=== PATIENT | male | born 2000 | race Caucasian/White ===

== ENCOUNTER 2021-07-10 15:51 | Outpatient (CLI) | payer OTHER ==
[2021-07-10] MEDS ORDERED: iohexoL-300 100 ML VIAL ONE (17:48)
[2021-07-10] MEDS ORDERED: iohexoL-300 100 ML VIAL IVP ONE (18:46)
--- NOTE | 2021-07-11 17:00 | CT Report ---
PROCEDURE: SOFT TISSUE NECK W INDICATIONS: LEFT ANTERIOR LATERAL NECK MASS CONTRAST: IV CONTRAST: Optiray 320 ml: 100 PO CONTRAST: *NO PO CONTRAST TECHNIQUE: After the administration of intravenous contrast, 3.0 mm axial sections acquired from the sella to th e aortic arch. Additional oblique axial 3.0 mm sections acquired through the pharynx. 3 mm thick co ashkan reformats were generated. For radiation dose reduction, the following was used: automated exp osure control, adjustment of mA and/or kV according to patient size. COMPARISON: None. FINDINGS: Image quality: Excellent. Lymph nodes: There is extensive left sided adenopathy. A confluent mass is identified in the left lev el 2A measuring 4.9 x 4.5 x 5.4 cm. Adenopathy extends into the multiple levels of the largest suprac lavicular node is present on series 3 image 82 and measures 1.9 cm in short axis. Lower neck as well as supraclavicular region. There are numerous right-sided lymph nodes although none considered enlarg ed by pathologic size criteria. Vessels: Visualized vasculature appears patent. Neck spaces: There is a slight asymmetric prominence to the left tonsillar region.. The vocal cords, false vocal cords, pyriform sinuses, epiglottis, vallecula, and tongue base all appear normal. Extr amucosal spaces appear unremarkable. Glands: The parotid and submandibular glands appear normal. The thyroid is normal in size and there are no incidental findings. Miscellaneous: Visualized brain and orbits appear normal. Lung apices appear clear. Superficial so ft tissues appear normal. Bones: No suspicious bony lesions. Visualized sinuses and mastoids appear unremarkable. IMPRESSION: 1. Extensive left-sided adenopathy as described above highly concerning for malignant process such as lymphoma or metastatic disease. 2. Asymmetric prominence within the left peritonsillar region. Mucosal mass within this region cannot be definitively excluded. Recommend direct visualization or PET scan for further evaluation. CLINICAL RECOMMENDATION STATEMENTS: In patients <35 years with an ITN detected on CT, MRI, or extrathyroidal ultrasound, the Committee re commends further evaluation with dedicated thyroid ultrasound if the nodule is "e1 cm and has no susp icious imaging features, and if the patient has normal life expectancy. In patients "e35 years with an ITN detected on CT, MRI, or extrathyroidal ultrasound, the Committee r ecommends further evaluation with dedicated thyroid ultrasound if the nodule is "e1.5 cm and has no s uspicious imaging features, and if the patient has normal life expectancy. (ACR, 2014) Reviewed by: Aleida Marques MD on 07/11/2021 4:59 PM PST Approved by: Aleida Marques MD on 07/11/2021 4:59 PM PST Station ID: [id number]
== END 2021-07-10 15:52 | disposition home or self-care (01) ==
LOC: DI 15:51
PROVIDERS: ATTEND Physician Assistant
DX: R59.0 Localized enlarged lymph nodes (principal); R93.89 Abnormal findings on diagnostic imaging of other specified body structures
CPT/HCPCS: 70491; Q9967

== ENCOUNTER 2021-07-19 10:56 | Day surgery (SDC) | payer OTHER ==
[2021-07-19] MEDS ORDERED: LACTATED RINGERS 1,000 ML IV ONE ×2 (11:00→13:33)
--- NOTE | 2021-07-19 11:36 | ANESTHESIA ---
Pre-Anesthesia VS, & Labs - Diagnosis left neck lymphadanopathy - Procedure removal of left neck lymph node Vital Signs: Temp Pulse Resp BP Pulse Ox 36.2 C L 102 H 18 142/68 H 100 07/19/21 11:00 07/19/21 11:00 07/19/21 11:00 07/19/21 11:00 07/19/21 11:00 Height: 5 ft 7 in Weight (kg): 130 kg Body Mass Index: 44.9 BMI Classification: Morbidly Obese - NPO >8 hours Home Medications and Allergies Allergies/Adverse Reactions: Allergies Allergy/AdvReac Type Severity Reaction Status Date / Time No Known Drug Allergies Allergy Verified 07/19/21 11:15 Anes History & Medical History - Anesthetic History Family history of Anesthesia Complications: Denies Family history of Malignant Hyperthermia: Denies - Medical History Cardiovascular: reports: None Pulmonary: reports: Other (snores) Gastrointestinal: reports: None Urinary: reports: None Neuro: reports: None Musculoskeletal: reports: None Endocrine/Autoimmune: reports: None Blood Disorders: reports: None Skin: reports: None Smoking Status: Never smoker Psychosocial: reports: No issues indicated History of Cancer?: No Exam General: Alert, Oriented x3, Cooperative, No acute distress Dental: WNL Mouth Openin Fingerbreadth Neck Mobility: Normal (large mass left neck) Mallampati classification: III Thyromental Distance: 4-6 cm Respiratory: Lungs clear, Normal breath sounds, No respiratory distress, No accessory muscle use Cardiovascular: Regular rate, Normal S1, Normal S2, No murmurs Mental/Cognitive Status: Alert/Oriented X3, Normal for patient Plan Anesthesia Type: General Consent for Procedure(s) Verified and Reviewed: Yes Code Status: Attempt Resuscitation ASA classification: 3-Severe systemic disease Is this case an emergency?: No
[2021-07-19] MEDS ORDERED: ONDANSETRON 4 MG/2 ML VIAL IVP PRN (11:40)
[2021-07-19] MEDS ORDERED: ATROPINE ABBOJECT 1 MG/10 ML SYRINGE IVP PRN (11:40)
[2021-07-19] MEDS ORDERED: NALOXONE 0.4 MG/ML VIAL IVP PRN (11:40)
[2021-07-19] MEDS ORDERED: fentaNYL 100 MCG/2 ML VIAL IVP PRN (11:40)
[2021-07-19] MEDS ORDERED: HYDROmorphone 0.5 MG/0.5 ML SYRINGE IVP PRN (11:40)
[2021-07-19] MEDS ORDERED: MORPHINE 2 MG/ML CARPUJECT IVP PRN (11:40)
[2021-07-19] MEDS ORDERED: ROCURONIUM 50 MG/5 ML VIAL ONE (11:51)
[2021-07-19] MEDS ORDERED: PROPOFOL 200 MG/20 ML VIAL IVP ONE (11:51)
[2021-07-19] MEDS ORDERED: MIDAZOLAM 2 MG/2 ML VIAL ONE (11:51)
[2021-07-19] MEDS ORDERED: LIDOCAINE-MPF 2% 5 ML VIAL ONE (11:51)
[2021-07-19] MEDS ORDERED: LIDOCAINE 2%-EPI 1:100000 20 ML MDV ONE (11:59)
[2021-07-19] MEDS ORDERED: BUPIVACAINE 0.5% PF 10 ML VIAL ONE (11:59)
[2021-07-19] MEDS ORDERED: LACTATED RINGERS 1,000 ML IV SCH (12:00)
[2021-07-19] MEDS ORDERED: LIDOCAINE 2%-EPI 1:100000 20 ML MDV SUBQ ONE ×2 (12:10)
[2021-07-19] MEDS ORDERED: BUPIVACAINE 0.5%-EPI 1:200000 PF 30 ML VIAL SUBQ ONE ×2 (12:10)
[2021-07-19] MEDS ORDERED: ONDANSETRON 4 MG/2 ML VIAL ONE (12:47)
[2021-07-19] MEDS ORDERED: DEXAMETHASONE 10 MG/ML VIAL ONE (12:47)
[2021-07-19] MEDS ORDERED: SUGAMMADEX 200 MG/2 ML VIAL IVP ONE (13:21)
[2021-07-19] MEDS ORDERED: HYDROcod/ACETAM 5/325 MG TABLET PO PRN (13:35)
--- NOTE | 2021-07-19 13:42 | OPERATIVE REPORT ---
Operative Report - General Procedure Date: 07/19/21 Planned Procedure: left neck lymph node biopsy Pre-Op Diagnosis: left neck lymphadenopathy Procedure Performed: excision deep left neck cervicle lymph node Post Op Diagnosis: left neck lymphadenopathy - Procedure Note Primary Surgeon: johnie stephens Anesthesia Technique: General ET tube, Local Pathology: lymph node Estimated Blood Loss (mL): 0 Drain/Tube Type: Other (none) Indications: lymphadenopathy Findings: bailey Complications: none - Other Other Information/Narrative: The patient was properly identified brought to the operating room and placed in supine position. General endotracheal anesthesia was induced. He was repositioned in a modified Fowlers position. He was prepped and draped in a sterile fashion. Antibiotics were not given. Local anesthetic was given. A 3 and half centimeter incision was made directly over the lower palpable lymph node. This was a low posterior cervical area. Dissection proceeded with cutting current cautery. Platysma was divided. The external jugular vein lay medial. Sternocleido mastoid musculature was carefully mobilized. A lymph node deep to the sternocleidomastoid was identified and carefully mobilized. The lymph node was approximately 2 x 3 cm. It was very soft and very adherent deep. Two thirds of the lymph node was carefully mobilized largely with blunt dissection followed by careful use of cutting current cautery. Two thirds of the lymph node was removed. Hemostasis was assured. Platysmas was closed with buried erupted 3-0 Vicryl suture. Buried interrupted subdermal 3-0 Vicryl sutures were was then placed. Skin was closed with a running 4-0 Monocryl subcuticular suture. Dressing was applied. Tolerated the procedure very well.
--- NOTE | 2021-07-19 14:32 | ANESTHESIA POST OP EVALUATION ---
Anesthesia Post Eval - Post Anesthesia Eval Vitals: Last Vital Signs Temp 36.2 C L 07/19/21 13:55 Pulse 103 H 07/19/21 13:55 Resp 19 07/19/21 13:55 BP 143/60 H 07/19/21 13:55 Pulse Ox 96 07/19/21 13:55 CV Function Including HR & BP: Stable Pain Control: Satisfactory Nausea & Vomiting: Negative Mental Status: Baseline Respiratory Status: Airway Patent Hydration Status: Satisfactory Anesthesia Complications: None
[2021-07-19 14:49] VITALS: BP 128/60
== END 2021-07-19 10:57 | disposition home or self-care (01) ==
LOC: SDS 10:56
PROVIDERS: ATTEND Surgery
PROC: 07B20ZX Excision of Left Neck Lymphatic, Open Approach, Diagnostic (ICD-10-PCS; principal; 2021-07-19 12:00)
DX: R59.0 Localized enlarged lymph nodes (principal); E66.01 Morbid (severe) obesity due to excess calories; Z68.41 Body mass index [BMI] 40.0-44.9, adult
CPT/HCPCS: 38510; J7120

== ENCOUNTER 2021-08-22 14:46 | Outpatient (CLI) | payer OTHER ==
[2021-08-22] MEDS ORDERED: IOPAMIDOL-300 50 ML VIAL ONE (15:07)
[2021-08-22] MEDS ORDERED: IOVERSOL 320 100 ML VIAL IVP ONE ×2 (15:08→19:02)
[2021-08-22] MEDS ORDERED: IOPAMIDOL-300 50 ML VIAL PO ONE (19:02)
--- NOTE | 2021-08-23 08:56 | CT Report ---
PROCEDURE: CHEST W INDICATIONS: LYMPHOMA CONTRAST: IV CONTRAST: Optiray 320 ml: 100 PO CONTRAST: Isovue 300 ml50 TECHNIQUE: After the administration of intravenous contrast, 1 mm axial images were acquired from the pulmonary apices through the posterior costophrenic angles. Axial 5 mm soft tissue kernel reconstructions were performed as well as 8 mm axial MIP and coronal and sagittal 5 mm reformations. For radiation dose reduction, the following was used: automated exposure control, adjustment of mA and/or kV according to patient size. COMPARISON: None. FINDINGS: CT CHEST: Thyroid: Homogeneous. Vasculature: The thoracic aorta and arch vasculature have a normal contrasted appearance and are norm al size and contour. No evidence for dissection. Heart: No cardiomegaly or significant pericardial effusion. Mediastinum: No pathologic lymph node enlargement by size criteria. Lung/pleura: No pleural effusion, consolidation, or pneumothorax. Tracheobronchial tree: Patent. Bones: No significant abnormality. Chest wall: The chest wall and axilla are within normal limits. IMPRESSION: 1.No significant abnormality. Reviewed by: Real Cleary MD on 08/23/2021 8:55 AM [facility] Approved by: Real Cleary MD on 08/23/2021 8:55 AM [facility] Station ID: [id number]
--- NOTE | 2021-08-23 08:58 | CT Report ---
PROCEDURE: Abdomen/Pelvis W INDICATIONS: LYMPHOMA CONTRAST: IV CONTRAST: Optiray 320 ml: 100 PO CONTRAST: Isovue 300 ml50 TECHNIQUE: After the administration of oral and intravenous contrast, 5 mm thick sections acquired from the diap hragms to the symphysis. 5 mm thick coronal and sagittal reformats were acquired. For radiation dos e reduction, the following was used: automated exposure control, adjustment of mA and/or kV accordin g to patient size. COMPARISON: None. FINDINGS: Gallbladder: The gallbladder is distended with a smooth thin wall. Biliary tree: No intra-or extrahepatic biliary ductal dilatation. Liver: The liver demonstrates normal enhancement, size, and contour. Spleen: Normal enhancement, size and morphology is seen. Pancreas: No contour deforming mass or inflammatory change. Adrenals: Normal size without masses. Kidneys/ureters: Normal size and morphology. No solid masses or hydronephrosis. Vasculature: No evidence of aneurysm or other significant vascular pathology. Lymphatic system: No pathologic enlargement by size criteria. GI/mesentery: No evidence of intestinal obstruction. Normal appearance of the appendix. Peritoneum/Retroperitoneum: No free intraperitoneal gas or large collection. Urinary bladder: The urinary bladder is distended with a smooth thin wall. Pelvic organs: No significant abnormality. Bones/soft tissues: No significant abnormality. IMPRESSION: 1.No significant abnormality. Reviewed by: Real Cleary MD on 08/23/2021 8:57 AM [facility] Approved by: Real Cleary MD on 08/23/2021 8:57 AM [facility] Station ID: [id number]
--- NOTE | 2021-08-23 12:41 | CT Report ---
PROCEDURE: SOFT TISSUE NECK W INDICATIONS: LYMPHOMA CONTRAST: IV CONTRAST: Optiray 320 ml: 100 PO CONTRAST: Isovue 300 ml50 TECHNIQUE: After the administration of intravenous contrast, 3.0 mm axial sections acquired from the sella to th e aortic arch. Additional oblique axial 3.0 mm sections acquired through the pharynx. 3 mm thick co ashkan reformats were generated. For radiation dose reduction, the following was used: automated exp osure control, adjustment of mA and/or kV according to patient size. COMPARISON: 07/10/2021. Correlation is also made with the accompanying chest CT, 08/22/2021. FINDINGS: Image quality: Excellent. Lymph nodes: Abnormally enlarged left-sided lymph nodes are seen. The largest is seen at level 2A an d measures 4.8 x 4.4 cm in greatest axial dimension. This is not significantly changed in size when c ompared to the prior study and measured in a similar fashion. Numerous other left-sided lymph nodes a re seen, which overall appear slightly more prominent on the current study than on the prior. However , some individual lymph nodes appear larger in some individual lymph nodes appear smaller. Vessels: Visualized vasculature appears patent. Neck spaces: The oropharynx, nasopharynx, and pharynx demonstrate no mucosal lesions. The vocal cor ds, false vocal cords, pyriform sinuses, epiglottis, vallecula, and tongue base all appear normal. E xtramucosal spaces appear unremarkable. Glands: The parotid and submandibular glands appear normal. The thyroid is normal in size and there are no incidental findings. Miscellaneous: Visualized brain and orbits appear normal. Lung apices appear clear. Superficial so ft tissues appear normal. Bones: No suspicious bony lesions. Visualized sinuses and mastoids appear unremarkable. IMPRESSION: Abnormally enlarged left-sided cervical lymph nodes are again seen. Although not significantly differ ent from the prior CT, the lymph nodes overall appear slightly larger on the current study than on e prior. Please consider short-term follow-up. Reviewed by: Huber Lopez MD on 08/23/2021 11:40 AM [facility] Approved by: Huber Lopez MD on 08/23/2021 11:40 AM [facility] Station ID: [id number]
== END 2021-08-22 14:47 | disposition home or self-care (01) ==
LOC: DI 14:46
PROVIDERS: ATTEND Internal Medicine
DX: C81.08 Nodular lymphocyte predominant Hodgkin lymphoma, lymph nodes of multiple sites (principal); R59.0 Localized enlarged lymph nodes

== ENCOUNTER 2021-09-24 06:26 | Day surgery (SDC) | payer OTHER ==
[2021-09-24] MEDS ORDERED: LACTATED RINGERS 1,000 ML IV ONE (06:33)
[2021-09-24] MEDS ORDERED: LIDOCAINE 2%-EPI 1:100000 20 ML MDV ONE (07:18)
[2021-09-24] MEDS ORDERED: BUPIVACAINE 0.25% PF 10 ML VIAL ONE (07:18)
[2021-09-24] MEDS ORDERED: MIDAZOLAM 2 MG/2 ML VIAL ONE (07:33)
[2021-09-24] MEDS ORDERED: ONDANSETRON 4 MG/2 ML VIAL ONE (07:34)
[2021-09-24] MEDS ORDERED: PROPOFOL 200 MG/20 ML VIAL IVP ONE ×2 (07:34→08:48)
[2021-09-24] MEDS ORDERED: LIDOCAINE-MPF 2% 5 ML VIAL ONE (07:34)
[2021-09-24] MEDS ORDERED: ROCURONIUM 50 MG/5 ML VIAL ONE (07:34)
[2021-09-24] MEDS ORDERED: fentaNYL 100 MCG/2 ML VIAL ONE (07:34)
--- NOTE | 2021-09-24 07:35 | ANESTHESIA ---
Pre-Anesthesia VS, & Labs - Diagnosis hodgkin lymphoma - Procedure port a cath placement Vital Signs: Temp Pulse Resp BP Pulse Ox 36.6 C 99 16 136/72 H 96 09/24/21 06:34 09/24/21 06:34 09/24/21 06:34 09/24/21 06:34 09/24/21 06:34 Height: 5 ft 6 in Weight (kg): 126.6 kg Body Mass Index: 45.0 BMI Classification: Morbidly Obese - NPO >8 hours - Lab Results Lab results reviewed: Yes Home Medications and Allergies diphenhydrAMINE HCL [Sleep Aid] 50 mg PO DAILY PM 08/14/21 Allergies/Adverse Reactions: Allergies Allergy/AdvReac Type Severity Reaction Status Date / Time No Known Drug Allergies Allergy Verified 07/19/21 11:15 Anes History & Medical History - Anesthetic History Anesthesia Complications: reports: No previous complications Family history of Anesthesia Complications: Denies Family history of Malignant Hyperthermia: Denies - Medical History Cardiovascular: reports: None Pulmonary: reports: Other Gastrointestinal: reports: None Urinary: reports: None Neuro: reports: None Musculoskeletal: reports: None Endocrine/Autoimmune: reports: None, Other (lymphoma) Blood Disorders: reports: None Skin: reports: None Smoking Status: Never smoker History of Cancer?: Yes (hodgkins lymphoma) - Surgical History Other Past Surgical History: lymph node biopsy Exam General: Alert, Oriented x3, Cooperative Dental: WNL Mouth Openin Fingerbreadth Neck Mobility: Normal Mallampati classification: II Thyromental Distance: 4-6 cm Respiratory: Lungs clear, Normal breath sounds, No respiratory distress Cardiovascular: Regular rate Neurological: Normal speech Mental/Cognitive Status: Alert/Oriented X3, Normal for patient Cognitive Status: Within normal limits Plan Anesthesia Type: General Consent for Procedure(s) Verified and Reviewed: Yes Code Status: Attempt Resuscitation ASA classification: 3-Severe systemic disease Is this case an emergency?: No
[2021-09-24] MEDS ORDERED: ONDANSETRON 4 MG/2 ML VIAL IVP PRN (07:40)
[2021-09-24] MEDS ORDERED: NALOXONE 0.4 MG/ML VIAL IVP PRN (07:40)
[2021-09-24] MEDS ORDERED: HYDROmorphone 0.5 MG/0.5 ML SYRINGE IVP PRN (07:40)
[2021-09-24] MEDS ORDERED: MORPHINE 2 MG/ML CARPUJECT IVP PRN (07:40)
[2021-09-24] MEDS ORDERED: METOCLOPRAMIDE 10 MG/2 ML VIAL IVP PRN (07:40)
[2021-09-24] MEDS ORDERED: fentaNYL 100 MCG/2 ML VIAL IVP PRN (07:40)
[2021-09-24] MEDS ORDERED: ATROPINE ABBOJECT 1 MG/10 ML SYRINGE IVP PRN (07:40)
[2021-09-24] MEDS ORDERED: ePHEDrine 50 MG/ML VIAL IVP PRN (07:40)
[2021-09-24] MEDS ORDERED: LACTATED RINGERS 1,000 ML IV SCH (08:00)
[2021-09-24] MEDS ORDERED: BUPIVACAINE 0.25% PF 30 ML VIAL SUBQ ONE (08:14)
[2021-09-24] MEDS ORDERED: ceFAZolin 1 GM VIAL ONE (08:17)
[2021-09-24] MEDS ORDERED: LACTATED RINGERS 200 ML IV ONE (09:02)
--- NOTE | 2021-09-24 09:27 | ANESTHESIA POST OP EVALUATION ---
Anesthesia Post Eval - Post Anesthesia Eval Vitals: Last Vital Signs Temp 37 C 09/24/21 09:16 Pulse 102 H 09/24/21 09:16 Resp 12 09/24/21 09:16 BP 108/96 H 09/24/21 09:16 Pulse Ox 100 09/24/21 09:16 CV Function Including HR & BP: Stable Pain Control: Satisfactory Nausea & Vomiting: Negative Mental Status: Baseline Respiratory Status: Airway Patent Hydration Status: Satisfactory Anesthesia Complications: None
[2021-09-24 09:53] VITALS: BP 144/95
--- NOTE | 2021-09-26 16:41 | XRAY Report ---
PROCEDURE: OR Port-A-Cath INDICATIONS: PORT PLACEMENT TECHNIQUE: Intraoperative images provided for evaluation. COMPARISON: None. FINDINGS: Intraoperative image demonstrates a partially visualized linear area of increased opacity overlying t he region of the right atrium. IMPRESSION: Linear opacity presumed to represent the distal Port-A-Cath tip as noted in clinical history. However , proximal portions are not included within the [id number]. Reviewed by: Aleida Marques MD on 09/26/2021 4:40 PM PDT Approved by: Aleida Marques MD on 09/26/2021 4:40 PM PDT Station ID: [id number]
== END 2021-09-24 06:27 | disposition home or self-care (01) ==
LOC: SDS 06:26
PROVIDERS: ATTEND Surgery
DX: C81.91 Hodgkin lymphoma, unspecified, lymph nodes of head, face, and neck (principal); E66.01 Morbid (severe) obesity due to excess calories; Z68.42 Body mass index [BMI] 45.0-49.9, adult
CPT/HCPCS: 36561; C1788; J7120